=== PATIENT | male | born 1975 | race African-American/Black ===

== ENCOUNTER 2016-05-25 10:51 | Emergency (ER) | payer BC, OTHER ==
[~2016-05-25] VITALS: Ht 167.6 cm; Wt 119.2 kg
[2016-05-25 11:46] LABS: INFLUENZA A VIRAL ANTIGEN NEGATIVE; INFLUENZA B VIRAL ANTIGEN POSITIVE
[2016-05-25] MEDS ORDERED: ZESTORETIC 20-1 EAC1 PO (12:30)
[2016-05-25 13:07] VITALS: BP 158/87
== END 2016-05-25 13:11 | disposition home or self-care (01) ==
LOC: EME 10:51
DX: J10.1 Influenza due to other identified influenza virus with other respiratory manifestations (principal); I10 Essential (primary) hypertension; F17.200 Nicotine dependence, unspecified, uncomplicated
CPT/HCPCS: 87502; 99281; 99284